=== PATIENT | female | born 1990 | race Caucasian/White ===

== ENCOUNTER 2024-12-08 08:30 | Outpatient (RCR) | payer OTHER, SELFPAY | END 2024-12-08 23:59 | disposition home or self-care (01) | LOC: RPT 08:30 | PROVIDERS: ATTENDING PHYSICIAN Physician Assistant Medical; FAMILY PHYSICIAN Student in an Organized Health Care Education/Training Program | DX: N81.84 Pelvic muscle wasting (principal); N39.41 Urge incontinence; N39.3 Stress incontinence (female) (male); Z73.6 Limitation of activities due to disability; M62.81 Muscle weakness (generalized) | CPT/HCPCS: 97163; 97530 ==

== ENCOUNTER 2025-01-10 12:03 | Outpatient (RCR) | payer OTHER, SELFPAY | END 2025-01-10 23:59 | disposition home or self-care (01) | LOC: RPT 12:03 | PROVIDERS: ATTENDING PHYSICIAN Physician Assistant Medical; FAMILY PHYSICIAN Student in an Organized Health Care Education/Training Program | DX: N81.84 Pelvic muscle wasting (principal); N39.41 Urge incontinence; N39.3 Stress incontinence (female) (male); Z73.6 Limitation of activities due to disability; M62.81 Muscle weakness (generalized) | CPT/HCPCS: 97014; 97110; 97112; 97140; 97530 ==

== ENCOUNTER 2025-02-06 14:03 | Outpatient (RCR) | payer OTHER, SELFPAY | END 2025-02-06 23:59 | disposition home or self-care (01) | LOC: RPT 14:03 | PROVIDERS: ATTENDING PHYSICIAN Physician Assistant Medical; FAMILY PHYSICIAN Student in an Organized Health Care Education/Training Program | DX: N81.84 Pelvic muscle wasting (principal); N39.41 Urge incontinence; N39.3 Stress incontinence (female) (male); Z73.6 Limitation of activities due to disability; M62.81 Muscle weakness (generalized) | CPT/HCPCS: 97014; 97110; 97112; 97140 ==

== ENCOUNTER 2025-02-22 09:54 | Outpatient (RCR) | payer OTHER, SELFPAY | END 2025-02-22 14:17 | disposition home or self-care (01) | LOC: RPT 09:54 | PROVIDERS: ATTENDING PHYSICIAN Physician Assistant Medical; FAMILY PHYSICIAN Student in an Organized Health Care Education/Training Program | DX: N81.84 Pelvic muscle wasting (principal); N39.41 Urge incontinence; N39.3 Stress incontinence (female) (male); Z73.6 Limitation of activities due to disability; M62.81 Muscle weakness (generalized) | CPT/HCPCS: 97110; 97530 ==